=== PATIENT | female | born 1995 ===

== ENCOUNTER 2017-02-24 12:41 | Inpatient (IN) | payer BC, MEDICAID ==
[2017-02-24] MEDS ORDERED: Iohexol 240 (50 ml) ONE (13:47)
[2017-02-24] MEDS ORDERED: Sodium Chloride 0.9% 1,000 ML IV STA (13:49)
[2017-02-24] MEDS ORDERED: Iohexol 240 (50 ml) PO ONE (13:50)
--- NOTE | 2017-02-24 13:55 | ED PDOC ---
HPI: General Adult Time Seen by Provider: 02/24/17 13:18 Chief Complaint (Nursing): Abdominal Pain History Per: Patient Additional Complaint(s): Pt. states since Sunday she's had RLQ abdominal pain which is worsened with movement especially movement of R leg. Reports that she can alleviate pain by lying on the affected side. Denies trauma, N/V/D, fever, previous abdominal surgeries, dysuria, hematuria. Past Medical History Reviewed: Historical Data, Nursing Documentation, Vital Signs Vital Signs: Last Vital Signs Temp 97.2 F L 02/24/17 18:18 Pulse 82 02/24/17 18:18 Resp 19 02/24/17 18:18 BP 113/72 02/24/17 18:18 Pulse Ox 99 02/24/17 18:36 - Family History Family History: States: No Known Family Hx - Immunization History Hx Tetanus Toxoid Vaccination: No Hx Influenza Vaccination: No Hx Pneumococcal Vaccination: No - Home Medications Home Medications: Ambulatory Orders Medication Instructions Recorded No Known Home Med 02/24/17 - Allergies Allergies/Adverse Reactions: Allergies Allergy/AdvReac Type Severity Reaction Status Date / Time No Known Allergies Allergy Verified 02/24/17 13:12 Review of Systems ROS Statement: Except As Marked, All Systems Reviewed And Found Negative Gastrointestinal: Positive for: Abdominal Pain Physical Exam - Reviewed Nursing Documentation Reviewed: Yes Vital Signs Reviewed: Yes - Physical Exam Appears: Positive for: Well, Non-toxic, No Acute Distress Head Exam: Positive for: ATRAUMATIC, NORMAL INSPECTION, NORMOCEPHALIC Skin: Positive for: Normal Color, Warm. Negative for: Rash Eye Exam: Positive for: EOMI, Normal appearance, PERRL ENT: Positive for: Normal ENT Inspection Neck: Positive for: Normal, Painless ROM Cardiovascular/Chest: Positive for: Regular Rate, Rhythm Respiratory: Positive for: CNT, Normal Breath Sounds Gastrointestinal/Abdominal: Positive for: Normal Exam, Bowel Sounds, Soft, Tenderness (RLQ tenderness), Other (negative psoas and obturator sign) Back: Positive for: Normal Inspection. Negative for: L CVA Tenderness, R CVA Tenderness Extremity: Positive for: Normal ROM Neurologic/Psych: Positive for: Alert, Oriented. Negative for: Aphasia, Facial Droop - Laboratory Results Result Diagrams: 02/24/17 14:23 02/24/17 14:23 - ECG O2 Sat by Pulse Oximetry: 99 ED OBSERVATION Date of observation admission: 02/24/17 Time of observation admission: 13:56 - Observation admission statement Patient is being placed in observation because:: Abdominal pain - Progress Note Progress Note: 02/24/17 13:[address] abd/pelvis w/ PO and IV contrast ordered. Morphine 2mg IV, zofran 4mg IV orderd. IV NS bolus given. Pt. kept NPO. 02/24/17 16:17 Pt. refused pain medicine and states pain is bearable. Informed of results. Pending CT. 02/24/17 17:34 CT abd/pelvis w/ contrast: With localized on dilatation and fluid within the proximal appendix. Mild wall thickening and infiltration changes in the adjacent mesenteric. Findings are consistent with early acute appendicitis. 02/24/17 18:35 Case d/w Dr. Lowery and request pt. be NPO after midnight and that he will take pt. to OR tomorrow. Case d/w Dr. Chatterjee, covering for Dr. Antionette garcia hair salon manager, and arrangements made for admission. Disposition - Clinical Impression Clinical Impression: Appendicitis - Patient ED Disposition Is Patient to be Admitted: Yes - Disposition Disposition Time: 18:29 Condition: GUARDED
[2017-02-24 14:46] LABS: BASO % 0.2 % (0.0-2.0); EOS # 0.1 K/uL (0.0-0.7); EOS % 0.6 % (0.0-4.0); LYMPH # 1.7 K/uL (1.0-4.3); LYMPH % 14.1 % (20.0-40.0); MEAN CORPUSCULAR HEMOGLOBIN 30.4 pg (27.0-31.0); MEAN CORPUSCULAR HGB CONC 33.4 g/dL (33.0-37.0); MEAN PLATELET VOLUME 9.1 fl (7.2-11.7); MONO # 0.9 K/uL (0.0-0.8); NEUT # 9.6 K/uL (1.8-7.0); NEUT % 78.1 % (50.0-75.0); RED CELL DISTRIBUTION WIDTH 14.4 % (11.5-14.5); WHITE BLOOD COUNT 12.2 K/uL (4.8-10.8)
[2017-02-24 14:47] LABS: ALB/GLOB RATIO 1.4 (1.0-2.1); ALKALINE PHOSPHATASE 85 U/L (38-126); ALT/SGPT 24 U/L (9-52); AST/SGOT 24 U/L (14-36); BILIRUBIN,TOTAL 1.4 mg/dl (0.2-1.3); BLOOD UREA NITROGEN 14 mg/dl (7-17); CALCIUM 9.6 mg/dL (8.4-10.2); CARBON DIOXIDE 24 mmol/L (22-30); CHLORIDE 102 mmol/L (98-107); GFR AFRICAN-AMERICAN > 60; GLUCOSE,RANDOM 81 mg/dL (65-105); POTASSIUM 4.1 MMOL/L (3.6-5.0); SODIUM 138 mmol/l (132-148); TOTAL PROTEIN 8.3 G/DL (6.3-8.2)
[2017-02-24 14:52] LABS: PARTIAL THROMBOPLASTIN TIME 27.8 SECONDS (23.3-32.5)
[2017-02-24 14:58] LABS: RBC URINE 5 /hpf (0-3); URINE BACTERIA RARE (<OCC); URINE BILIRUBIN NEGATIVE (NEGATIVE); URINE BLOOD NEGATIVE (NEGATIVE); URINE COLOR YELLOW (YELLOW); URINE GLUCOSE (UA) NEG (Normal); URINE KETONE NEGATIVE (NEGATIVE); URINE LEUKOCYTE ESTERASE NEG Leu/uL (Negative); URINE PROTEIN NEGATIVE (NEGATIVE); URINE UROBILINOGEN 0.2-1.0 mg/dL (0.2-1.0); WBC URINE 1 /hpf (0-5)
[2017-02-24] MEDS ORDERED: Sodium Chloride 0.9% 50 ML IV ONE (16:43)
[2017-02-24] MEDS ORDERED: Iohexol 300 100 ML IJ ONE (16:43)
--- NOTE | 2017-02-24 17:26 | CT ---
PROCEDURE: CT abdomen pelvis dated 02/24/2017. . HISTORY: Right lower quadrant abdominal pain. COMPARISON: None. TECHNIQUE: Contiguous helical/transaxial images of the abdomen and pelvis performed of following intravenous injection of approximately 98 cc Omnipaque 300 contrast material. . Coronal and Sagittal reformats generated. Radiation dose: Total exam DLP = 716.05 mGy-cm. This CT exam was performed using one or more of the following dose reduction techniques: Automated exposure control, adjustment of the mA and/or kV according to patient size, and/or use of iterative reconstruction technique. FINDINGS: LOWER THORAX: Unremarkable. LIVER: Liver exhibits normal size measuring nearly 15 cm in CC dimension. Mild diffuse fatty hepatic infiltration. No obvious hepatic mass or collection. Portal and splenic veins are opacified. GALLBLADDER AND BILE DUCTS: Gallbladder is physiologically distended. No evidence of intraluminal gallbladder calculi. PANCREAS: Unremarkable. No mass. No ductal dilatation. SPLEEN: Spleen exhibits normal size and attenuation pattern without mass collection or calcification. Giovani ADRENALS: There are no adrenal lesions. KIDNEYS AND URETERS: Kidneys exhibit symmetric size. No evidence of nephrolithiasis or hydronephrosis. BLADDER: Urinary bladder is there appears to be incompletely distended which presumably accounts for slight thick-walled appearance. Possibility of cystitis not excluded. Clinical correlation recommended. REPRODUCTIVE: Uterus grossly unremarkable. There may be small approximately 16 mm right adnexal cyst. (On see axial image number [id number] Pelvic ultrasound followup could be performed if further evaluation is required APPENDIX: With localized on dilatation and fluid within the proximal appendix. Mild wall thickening and infiltration changes in the adjacent mesenteric. Findings are consistent with early acute appendicitis. BOWEL: Evaluation of the bowel is limited due to incomplete opacification. Stomach is distended with oral contrast material and some air. The. There is mild wall thickening of several proximal loops of the small bowel nonspecific. Rule out concomitant mild enteritis. The remaining visualized mid and distal loops of small bowel exhibit normal contour and caliber. No evidence of acute mechanical small bowel obstruction with oral contrast material extending into the colon to the level of the rectum. PERITONEUM: Unremarkable. No fluid collection. No free air. Tiny fat containing umbilical hernia. LYMPH NODES: Unremarkable. No enlarged lymph nodes. VASCULATURE: Unremarkable. No aortic aneurysm. BONES: Visualized lower thoracic and lumbar spine intact. No acute compression fractures nor retropulsed fragments. No significant degenerative spondylosis. OTHER FINDINGS: None. IMPRESSION: Findings are consistent with acute acute appendicitis with intraluminal appendicolith. There are also several of mildly prominent thick-walled loops of proximal small bowel nonspecific. Rule out mild enteritis Mild fatty hepatic infiltration. There may be small approximately 16 mm right adnexal cyst. Pelvic ultrasound followup could be performed if further evaluation is required These findings discussed with emergency room KOLTON Perez at approximately 5:20 p.m. with written down and read back verification.
[2017-02-24] MEDS ORDERED: Piperacillin/Tazobact 3.375 GM in Sodium Chloride 0.9% 100 ML IVPB STA (17:43)
[2017-02-24] MEDS ORDERED: Piperacillin/Tazobact 3.375 gm Inj IVPB ONE (17:46)
[2017-02-24 17:47] LABS: VENOUS BLOOD GAS BASE EXCESS 2.5 mmol/L (0.0-2.0); VENOUS BLOOD GAS PCO2 48 mmHg (40-60); VENOUS BLOOD PH 7.38 (7.32-7.43)
--- NOTE | 2017-02-24 22:11 | CP.PCM.CON ---
<Nela Darnell - Last Filed: 02/24/17 22:17> History of Present Illness - History of Present Illness History of Present Illness: GENERAL SURGERY CONSULT NOTE FOR DR. CHAU 22yo F with no PMHx presents to the ED with RLQ abdominal pain. The pain began night, is sharp, located in the RLQ. The pain continued Sunday and today. Movement exacerbates the pain, especially with movement of the right leg. She denies nausea, vomiting, diarrhea, constipation, fever, chills, dysuria , frequency, abnormal discharge. PMHx: none Surgeries: none Allergies: none Social history: occasional etoh, denies illicit drug use or tobacco use Review of Systems - Review of Systems All systems: reviewed and no additional remarkable complaints except (as per HPI ) Past Patient History - Past Social History Smoking Status: Never Smoked - CARDIAC Hx Cardiac Disorders: No - PULMONARY Hx Respiratory Disorders: No - NEUROLOGICAL Hx Neurological Disorder: No - HEENT Hx HEENT Problems: No - RENAL Hx Chronic Kidney Disease: No - ENDOCRINE/METABOLIC Hx Endocrine Disorders: No - HEMATOLOGICAL/ONCOLOGICAL Hx Blood Disorders: No - INTEGUMENTARY Hx Dermatological Problems: No - MUSCULOSKELETAL/RHEUMATOLOGICAL Hx Musculoskeletal Disorders: No - GENITOURINARY/GYNECOLOGICAL Hx Genitourinary Disorders: No - PSYCHIATRIC Hx Psychophysiologic Disorder: No - SURGICAL HISTORY Hx Surgeries: No - ANESTHESIA Hx Anesthesia: No Meds Allergies/Adverse Reactions: Allergies Allergy/AdvReac Type Severity Reaction Status Date / Time No Known Allergies Allergy Verified 02/24/17 13:12 Physical Exam - Constitutional Appears: Well, Non-toxic, No Acute Distress - Head Exam Head Exam: ATRAUMATIC, NORMAL INSPECTION - Eye Exam Eye Exam: EOMI, Normal appearance - Respiratory Exam Respiratory Exam: NORMAL BREATHING PATTERN. absent: Respiratory Distress - Cardiovascular Exam Cardiovascular Exam: +S1, +S2 - GI/Abdominal Exam GI & Abdominal Exam: Soft, Tenderness (tender in RLQ, McBurney's point). absent : Distended, Firm, Guarding, Rebound, Rigid Additional comments: Negative Rovsing sign - Neurological Exam Neurological exam: Alert, CN II-XII Intact, Oriented x3 - Psychiatric Exam Psychiatric exam: Normal Affect, Normal Mood - Skin Skin Exam: Normal Color, Warm Results - Vital Signs Recent Vital Signs: Last Vital Signs Temp 97.2 F L 02/24/17 20:39 Pulse 82 02/24/17 20:39 Resp 19 02/24/17 20:39 BP 113/72 02/24/17 20:39 Pulse Ox 99 02/24/17 19:09 - Labs Result Diagrams: 02/24/17 14:23 02/24/17 14:23 Assessment & Plan - Assessment and Plan (Free Text) Assessment: 22yo F with no PMHx who presented with RLQ pain and was found to have appendicitis - Afebrile, VSS - Mild leukocytosis WBC 12.2 - CT: appendix with localized dilation and fluid within proximal appendix, mild wall thickening and infiltrative changes, intraluminal appendicolith, consistent with early acute appendicitis; tiny fat containing umbilical hernia - NPO - IV fluids - IV Zosyn - Zofran and Morphine PRN - Plan for OR tomorrow AM for laparoscopic appendectomy - Procedure explained in detail to patient and family, all risks and benefits discussed, patient agrees for procedure, written consent obtained - Discussed plan with Dr. Kandi Darnell PGY-2 <Zoran Chau - Last Filed: 02/26/17 18:41> Results - Vital Signs Recent Vital Signs: Last Vital Signs Temp 97.9 F 02/26/17 15:31 Pulse 80 02/26/17 15:31 Resp 20 02/26/17 15:31 BP 112/72 02/26/17 15:31 Pulse Ox 98 02/26/17 15:31 - Labs Result Diagrams: 02/26/17 06:30 02/26/17 06:30 Labs: Laboratory Results - last 24 hr 02/26/17 02/26/17 06:30 06:30 WBC 8.1 RBC 3.73 L Hgb 11.5 L Hct 34.3 MCV 92.0 MCH 30.9 MCHC 33.6 RDW 14.8 H Plt Count 196 Sodium 138 Potassium 3.8 Chloride 105 Carbon Dioxide 25 Anion Gap 11 BUN 6 L Creatinine 0.8 Est GFR ( Amer) > 60 Est GFR (Non-Af Amer) > 60 Random Glucose 85 Calcium 8.5 Total Bilirubin 1.3 AST 26 ALT 20 Alkaline Phosphatase 62 Total Protein 6.5 Albumin 3.5 D Globulin 3.0 Albumin/Globulin Ratio 1.2 Attending/Attestation - Attestation I have personally seen and examined this patient.: Yes I have fully participated in the care of the patient.: Yes I have reviewed all pertinent clinical information: Yes Notes (Text): 02/26/17 18:39 Pt was seen and examined at bedside on 02/25/17 Agree with above note and assessment Pt with Acute Appendicitis OR for Lap Appendectomy Consent NPO, IVF Plan d.w pt in detail Risk and benefit explained in detail.
[2017-02-24] MEDS ORDERED: Sodium Chloride 0.9% 1,000 ML IV SCH (22:30)
[2017-02-24] MEDS: Piperacillin/Tazobact 3.375 GM in Sodium Chloride 0.9% 100 ML IVPB SCH (22:45)
[2017-02-25] MEDS ORDERED: Lidocaine 2% Jelly (5 ml) TOP ONE (01:16)
[2017-02-25] MEDS: Piperacillin/Tazobact 3.375 GM in Sodium Chloride 0.9% 100 ML IVPB SCH ×3 (04:52→21:31)
[2017-02-25] MEDS ORDERED: Bupivacaine 0.5% Inj(30mL) ONE (08:51)
[2017-02-25] MEDS ORDERED: Lidocaine 1% Inj (20ml) ONE (08:51)
[2017-02-25] MEDS ORDERED: Propofol 10 mg/ml Inj (20 ML) ONE (09:05)
[2017-02-25] MEDS ORDERED: Lidocaine Hydrochloride 5 ML INJ ONE (09:05)
[2017-02-25] MEDS ORDERED: Succinylcholine 200 mg/10 ml Inj IV ONE (09:05)
[2017-02-25] MEDS ORDERED: Rocuronium 10 mg/ml (5 ml) ONE (09:05)
[2017-02-25] MEDS ORDERED: Neostigmine Methylsulfate 3mg/3ml Syringe IV ONE (09:05)
[2017-02-25] MEDS ORDERED: Neostigmine Methylsulfate 2 MG/2 ML ML IV ONE (09:07)
[2017-02-25] MEDS ORDERED: Sodium Chloride 0.9% 100 ML IV ONE (09:25)
[2017-02-25] MEDS ORDERED: Piperacillin/Tazobact 3.375 gm Inj IVPB ONE (09:25)
[2017-02-25] MEDS ORDERED: Lactated Ringer's 1,000 ML IV ONE (10:10)
[2017-02-25] MEDS ORDERED: Desflurane Inhalation Anesthetic Liq (240 ml) ONE (10:17)
[2017-02-25] MEDS ORDERED: Bupivacaine 0.5% 50 ML IJ ONE (10:38)
[2017-02-25] MEDS ORDERED: Dexamethasone 4 mg/1 ml IVP PRN (10:48)
[2017-02-25] MEDS ORDERED: HYDROmorphone 0.5 mg/0.5 ml ISec IVP PRN (10:48)
--- NOTE | 2017-02-25 11:02 | PCM.SURG1 ---
Surgeon's Initial Post Op Note - Surgeon's Notes Surgeon: Kandi Fuel Manager: Marnie Pre-Operative Diagnosis: Acute appendicitis Operative Findings: Inflammed appendix, phlegmonous changes Post-Operative Diagnosis: Acute appendicitis with phlegmonous changes Operation Performed: Laparoscopic appendectomy, removal of appendicolith Specimen/Specimens Removed: Appendix Estimated Blood Loss: EBL {In ML}: 10 Date of Surgery/Procedure: 02/25/17 Time of Surgery/Procedure: 09:00
--- NOTE | 2017-02-25 14:33 | HP ---
CHIEF COMPLAINT: Abdominal pain. HISTORY OF PRESENT ILLNESS: This is a 22-year-old female without significant past medical history wh o ____ lower quadrant pain for a few days which got worse yesterday, so patient was brought [facility] and was found to have acute appendicitis, so patient was admitted for further management. REVIEW OF SYSTEMS: Positive for right lower quadrant pain. Review of systems otherwise is negative for headache, dizziness, syncope, loss of consciousness, chest pain, shortness of breath, nausea, vom iting, diarrhea, constipation, any new joint or extremity pain. Review of systems of all other organ systems is unremarkable except generalized malaise and fever and weakness. PAST MEDICAL HISTORY: Unremarkable. PAST SURGICAL HISTORY: Unremarkable. PERSONAL HISTORY: The patient is currently a nonsmoker, nondrinker, no substance abuse. MEDICATIONS: The patient is not on any medications. ALLERGIES: The patient is not allergic to any medication. FAMILY HISTORY: Noncontributory. PHYSICAL EXAMINATION: GENERAL: Well-built, well-nourished 22-year-old female in no acute distress. VITAL SIGNS: Temperature 97.2, pulse 82, respiration 19, blood pressure 113/72, saturation 99%. HEENT: Pupils reacting to light. No JVD, no thyromegaly, no lymphadenopathy. No nystagmus. Normoc ephalic, atraumatic skull. HEART: S1, S2 normal, regular. No significant murmur, gallop or rub is heard. LUNGS: Show good bilateral air exchange. No rales or rhonchi. ABDOMEN: Soft. No organomegaly, no fluid. Bowel sounds are plus. The patient has significant tend erness in the right lower quadrant consistent with acute appendicitis, but there is no sign of acute peritonitis. EXTREMITIES: No edema, no calf swelling, no tenderness, no acute ischemia. CENTRAL NERVOUS SYSTEM: Essentially unchanged. DIAGNOSTIC DATA: Available diagnostic data reviewed. WBC 12.2, hemoglobin 13, hematocrit 39, platel ets 226. PT 11.8, PTT 27.8. PH 7.____, pCO2 48, pO2 of 38. Sodium 138, potassium 4.1, chloride 102 , bicarbonate 24, BUN 14, creatinine 0.7. SMA-12 is essentially unremarkable. Urinalysis is negativ e. CAT scan of the abdomen is consistent with acute appendicitis. ADMITTING IMPRESSION: Acute appendicitis. The patient is medically stable and in optimal condition for proposed surgery. There is no medical contraindication for same. PLAN: As ordered. Case and plan discussed with patient and the patient's mother at bedside. Aaron Chatterjee MD cc: [id number] TT: 02/25/2017 14:33:22 alan
--- NOTE | 2017-02-26 02:20 | CP.PCM.PN ---
Addendum entered and electronically signed by Dmitriy Dye DO 02/26/17 09:00: Patient clear for DC. Follow up with Dr Chau in 1-2 weeks. Original Note: <Dmitriy Dye - Last Filed: 02/26/17 02:18> Subjective - Date & Time of Evaluation Date of Evaluation: 02/26/17 Time of Evaluation: 02:18 - Subjective Subjective: SURGERY PROGRESS NOTE FOR DR. CHAU 22F seen and examined at bedside. Patient complains of abdominal discomfort appropriate for surgery. Denies nausea/vomiting, she is tolerating her liquid diet. Incisions are CDI. Objective - Vital Signs/Intake and Output Vital Signs (last 24 hours): Temp Pulse Resp BP Pulse Ox 98.5 F 98 H 18 103/65 97 02/25/17 20:25 02/25/17 20:25 02/25/17 20:25 02/25/17 20:25 02/25/17 20:25 Intake and Output: 02/25/17 02/26/17 18:59 06:59 Intake Total 500 Balance 500 - Medications Medications: Current Medications Piperacillin Sod/Tazobactam (Sod 3.375 gm/ Sodium Chloride) 100 mls @ 100 mls/ hr IVPB Q6 CARRI Last Admin: 02/25/17 21:31 Dose: 100 mls/hr Meperidine HCl (Demerol) 12.5 mg IVP Q5M PRN PRN Reason: Shivering/Rigor Morphine Sulfate (Morphine) 4 mg IVP Q4 PRN PRN Reason: Pain, moderate (4-7) Last Admin: 02/25/17 20:05 Dose: 4 mg Ondansetron HCl (Zofran Inj) 4 mg IVP Q4 PRN PRN Reason: Nausea/Vomiting - Labs Labs: PT 11.8 SECONDS (9.6-11.2) H 02/24/17 14:23 INR 1.13 (0.92-1.08) H 02/24/17 14:23 APTT 27.8 SECONDS (23.3-32.5) 02/24/17 14:23 - Constitutional Appears: Non-toxic, No Acute Distress - Respiratory Exam Respiratory Exam: Clear to Ausculation Bilateral, NORMAL BREATHING PATTERN - Cardiovascular Exam Cardiovascular Exam: REGULAR RHYTHM, +S1, +S2 - GI/Abdominal Exam GI & Abdominal Exam: Soft, Tenderness. absent: Distended, Firm, Guarding, Rigid , Rebound Additional comments: incisions CDI - Neurological Exam Neurological Exam: Alert, Awake - Skin Skin Exam: Dry, Intact, Normal Color, Warm Assessment and Plan - Assessment and Plan (Free Text) Assessment: 22F s/p laparoscopic appendectomy POD#1 Plan: - pain control - advance diet as tolerated - serial abdominal exams - f/u AM labs - If patient doing well possible DC later today Further recs discuss with Dr. Kandi Dye, PGY1 <Zoran Chau - Last Filed: 02/26/17 18:55> Objective - Vital Signs/Intake and Output Vital Signs (last 24 hours): Temp Pulse Resp BP Pulse Ox 97.9 F 80 20 112/72 98 02/26/17 15:31 02/26/17 15:31 02/26/17 15:31 02/26/17 15:31 02/26/17 15:31 - Labs Labs: 02/26/17 06:30 02/26/17 06:30 PT 11.8 SECONDS (9.6-11.2) H 02/24/17 14:23 INR 1.13 (0.92-1.08) H 02/24/17 14:23 APTT 27.8 SECONDS (23.3-32.5) 02/24/17 14:23 Attending/Attestation - Attestation I have personally seen and examined this patient.: Yes I have fully participated in the care of the patient.: Yes I have reviewed all pertinent clinical information, including history, physical exam and plan: Yes Notes (Text): 02/26/17 18:54 Pt was seen and examined at bedside on 02/26/17 Agree with above note and assessment
[2017-02-26] MEDS: Piperacillin/Tazobact 3.375 GM in Sodium Chloride 0.9% 100 ML IVPB SCH ×2 (04:16→10:08)
[2017-02-26] MEDS ORDERED: Oxycodone/Acetaminophen 5/325 mg Tab PO PRN ×2 (06:48→10:02)
[2017-02-26 07:26] LABS: HEMATOCRIT 34.3 % (34.0-47.0); MEAN CORPUSCULAR HEMOGLOBIN 30.9 pg (27.0-31.0); MEAN CORPUSCULAR HGB CONC 33.6 g/dL (33.0-37.0); RED CELL DISTRIBUTION WIDTH 14.8 % (11.5-14.5); WHITE BLOOD COUNT 8.1 K/uL (4.8-10.8)
[2017-02-26 07:28] LABS: ALB/GLOB RATIO 1.2 (1.0-2.1); ALKALINE PHOSPHATASE 62 U/L (38-126); ALT/SGPT 20 U/L (9-52); AST/SGOT 26 U/L (14-36); BILIRUBIN,TOTAL 1.3 mg/dl (0.2-1.3); BLOOD UREA NITROGEN 6 mg/dl (7-17); CALCIUM 8.5 mg/dL (8.4-10.2); CARBON DIOXIDE 25 mmol/L (22-30); CHLORIDE 105 mmol/L (98-107); GFR AFRICAN-AMERICAN > 60; GLUCOSE,RANDOM 85 mg/dL (65-105); POTASSIUM 3.8 MMOL/L (3.6-5.0); SODIUM 138 mmol/l (132-148); TOTAL PROTEIN 6.5 G/DL (6.3-8.2)
[2017-02-26 07:33] VITALS: O2SAT 98
[2017-02-26 15:31] VITALS: BP 112/72; PULSE 80; RESP 20; TEMP 97.9
--- NOTE | 2017-02-26 20:59 | OP ---
PROCEDURE DATE: 02/25/2017 PREOPERATIVE DIAGNOSES: Acute appendicitis and leukocytosis. POSTOPERATIVE DIAGNOSES: 1. Acute appendicitis and leukocytosis. 2. Pelvic and periappendicular abscess. PROCEDURE DONE: 1. Laparoscopic appendectomy. 2. Laparoscopic drainage of pelvic abscess and periappendicular abscess. 3. Laparoscopic extensive lysis of adhesions. SURGEON: Zoran Chau MD SMOKING TOBACCO PACKING MACHINE HAND: Gosia Hoskins, PGY-1 resident. ANESTHESIA: General endotracheal tube anesthesia. ESTIMATED BLOOD LOSS: Around 10 mL. DRAINS: None. PATHOLOGY: Appendix was sent for pathology. COMPLICATIONS: None. INTRAOPERATIVE FINDINGS: The patient had acute suppurative appendicitis with some phlegmonous changes with pelvic and periappendicular abscess. INTRAOPERATIVE STEPS: This 22-year-old female was diagnosed with acute appendicitis and leukocytosis, and patient was consented for the laparoscopic appendectomy, possible open. Brought to the OR, placed supine on operating table. After induction of anesthesia, the abdomen was prepped and draped in the usual sterile fashion. Supraumbilical transverse 1.5 cm incision was made. After incising skin and subcutaneous tissue and fascia, the Myesha port was placed, pneumo was created. The 5-mm port was placed in the suprapubic region. A 12-mm port was placed in left lower quadrant. Grasper and dissector were introduced and the phlegmon was dissected and the appendix was identified, and extensive lysis of adhesions was done in order to identify the base of the appendix and with the Harmonic scalpel the meso appendix was resected. Hemostasis was achieved. The base of the appendix was resected with a BENJAMIN and periappendicular abscess, as well as the pelvic abscess, was drained. The suction irrigation of the pelvis, periappendicular area, and the perihepatic area were done. All the fluid was suctioned out. After proper hemostasis, all the appendix was sent on the table for the pathology. All the ports were taken out under vision. Pneumo was deflated. Umbilical port site was closed in 2 layers; the fascia with 0 Vicryl interrupted sutures, skin with a 4-0 Monocryl, and dry sterile dressing was applied. The patient tolerated the procedure well. Count of instruments and gauze was correct. There was no apparent complication. Zoran Chau MD cc: [id number] TT: 02/26/2017 20:58:38 dn MTDD
--- NOTE | 2017-02-27 08:25 | PN ---
DATE: 02/26/2017 The patient seen and examined. Interim events noted. Consults noted, appreciated. Surgical interve ntion and surgery noted and appreciated. The patient remains on regular medical floor. The patient feels better. The patient has pain but it is adequately controlled. No chest pain or shortness of b reath. PHYSICAL EXAMINATION: GENERAL: The patient is in no acute distress. VITAL SIGNS: Stable. HEART: S1, S2 normal, regular. LUNGS: Good bilateral air exchange. ABDOMEN: Soft, nontender. EXTREMITIES: No edema, no calf swelling, no tenderness, no acute ischemia. CENTRAL NERVOUS SYSTEM: Essentially unchanged. ABDOMEN: ____ does not reveal any acute sign of complication. Overall, the patient is medically stable. If cleared by surgery, will discharge patient home at late r time today. Case and plan discussed with patient and the patient's family at bedside at length. Aaron Chatterjee MD cc: [id number] TT: 02/26/2017 11:13:41 Confirmation # [id number] Dictation # [id number] alan
== END 2017-02-26 16:50 | disposition home or self-care (01) | DRG 337 ==
LOC: H.ER 12:41 → H.EROBSV 13:51 → OBSVTOIN 18:29 → H.ERHOLD 18:34 → H.MEDSURG1 21:13
PROVIDERS: ADMIT Internal Medicine; ATTEND Internal Medicine
PROC: 0DNW4ZZ Release Peritoneum, Percutaneous Endoscopic Approach (ICD-10-PCS; 2017-02-25)
PROC: 0J9C3ZZ Drainage of Pelvic Region Subcutaneous Tissue and Fascia, Percutaneous Approach (ICD-10-PCS; 2017-02-25)
PROC: 0DTJ4ZZ Resection of Appendix, Percutaneous Endoscopic Approach (ICD-10-PCS; principal; 2017-02-25 09:00)
DX: K35.3 Acute appendicitis with localized peritonitis (principal); K66.0 Peritoneal adhesions (postprocedural) (postinfection); N73.9 Female pelvic inflammatory disease, unspecified